=== PATIENT | female | born 2000 | race Caucasian/White ===

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

== ENCOUNTER 2019-03-27 15:30 | Outpatient (REF) | payer MEDICAID, SELFPAY ==
[2019-03-27 19:33] LABS: TSH (W/Ref FT4) 4.06 uIU/mL (0.52-4.13)
[2019-03-28 15:00] LABS: FREE T4 0.77 ng/dL (0.78-1.34)
== END 2019-03-27 15:50 ==
LOC: NCHCN 15:30
PROVIDERS: PCP Internal Medicine; Visit Provider Nurse Practitioner Family
DX: E03.9 Hypothyroidism, unspecified (principal)
CPT/HCPCS: 84439; 84443

== ENCOUNTER 2019-12-28 11:55 | Outpatient (REF) | payer MEDICARE, MEDICAID, SELFPAY ==
[2020-01-01 07:24] LABS: SARS-CoV-2 RNA Undetected (Undetected); SARS-CoV-2 Specimen Source Nasal
== END 2019-12-28 12:15 ==
LOC: NCHCN 11:55
PROVIDERS: PCP Internal Medicine; Visit Provider Nurse Practitioner Family
DX: Z20.828 Contact with and (suspected) exposure to other viral communicable diseases (principal)
CPT/HCPCS: U0003

== ENCOUNTER 2020-07-29 15:31 | Outpatient (REF) | payer MEDICARE, MEDICAID, SELFPAY ==
[2020-07-29 19:45] LABS: TSH (W/Ref FT4) 2.28 uIU/mL (0.36-3.74)
== END 2020-07-29 15:32 | disposition home or self-care (01) ==
LOC: NCHCN 15:31
PROVIDERS: PCP Internal Medicine; Visit Provider Nurse Practitioner Family
DX: E03.9 Hypothyroidism, unspecified (principal)
CPT/HCPCS: 84443

== ENCOUNTER 2020-10-01 18:09 | Outpatient (REF) | payer MEDICARE, MEDICAID, SELFPAY ==
--- NOTE | 2020-10-01 11:45 | PAPFT_PTH ---
PATIENT: Dolores Pineda LOC: [facility] U#:[id number] AGE/SX: 20/F ROOM: RE10/01/[address]: Yeni Szymanski : 2000 BED: DIS: 10/01/2020 SPEC #: [id number] RECD: 10/01/20 18:18 STATUS: MATTI REAriel #: [id number] SKYLAR: 10/01/20 11:[address] Cytology RECD BY: Raisa Hirsch ENTERED: 10/01/20 18:19 SP TYPE: PAPFT OTHR DR: Enrique Castano Tissues: 1 - CX/ENDOCX FOR PAP SMEARS Procedures: PAP THIN PREP/[facility] Screening Comments: [id number] (CHLAMYDIA/GC)
[2020-10-02 15:25] LABS: Chlamydia Result Negative (Negative); GC Result Negative (Negative)
== END 2020-10-01 18:10 | disposition home or self-care (01) ==
LOC: LBN 18:09
PROVIDERS: PCP Internal Medicine; Visit Provider Nurse Practitioner Family
DX: Z11.3 Encounter for screening for infections with a predominantly sexual mode of transmission (principal); Z12.4 Encounter for screening for malignant neoplasm of cervix; Z01.419 Encounter for gynecological examination (general) (routine) without abnormal findings
CPT/HCPCS: 87491; 87591; 88142

== ENCOUNTER 2020-11-26 16:09 | Outpatient (REF) | payer MEDICARE, MEDICAID, SELFPAY ==
[2020-11-26 20:07] LABS: Abs Immature Grans 0.05 10^3/uL (0.0-0.06); Absolute Basophil Count 0.05 10^3/uL (0.0-0.2); Absolute Eosinophil Count 0.48 10^3/uL (0.0-0.7); Absolute Lymphocyte Count 3.15 10^3/uL (1.2-3.4); Absolute Monocyte Count 0.74 10^3/uL (0.1-0.8); Absolute Neutrophil Count 4.19 10^3/uL (1.2-6.7); Basophils % 0.6; Eosinophils % 5.5; HCT 42.5 % (36.0-46.0); HGB 14.3 g/dL (11.2-15.7); Immature Grans % 0.6; Lymphocytes % 36.4; MCH 30.2 pg (27.0-33.0); MCHC 33.6 % (32.0-36.0); MCV 89.7 fL (80-95); MPV 11.7 fL (8.0-11.0); Monocytes % 8.5; Neutrophils % 48.4; Nucleated RBC 0 %; Platelet Count 296 10^3/uL (130-400); RBC 4.74 10^6/uL (3.93-5.22); RDW 12.9 % (11.7-14.6); RDW-SD 42.8 fL; WBC 8.66 10^3/uL (4.4-10.8)
== END 2020-11-26 16:10 | disposition home or self-care (01) ==
LOC: NCHCN 16:09
PROVIDERS: PCP Internal Medicine; Visit Provider Physician Assistant
DX: R19.5 Other fecal abnormalities (principal)
CPT/HCPCS: 85025

== ENCOUNTER 2020-11-27 20:26 | Outpatient (REF) | payer MEDICARE, MEDICAID, SELFPAY ==
[2020-11-27 22:12] LABS: C Diff PCR Positive (Negative)
[2020-11-29 11:33] LABS: Campylobacter PCR Negative (Negative); Salmonella PCR Negative (Negative); Shiga Toxin PCR Negative (Negative); Shigella/Enteroinvasive Ecoli Negative (Negative)
== END 2020-11-27 20:27 | disposition home or self-care (01) ==
LOC: NCHCN 20:26
PROVIDERS: PCP Internal Medicine; Visit Provider Physician Assistant
DX: R19.5 Other fecal abnormalities (principal)
CPT/HCPCS: 80053; 87493; 87505; 87177

== ENCOUNTER 2021-06-26 15:52 | Outpatient (REF) | payer MEDICARE, MEDICAID, SELFPAY ==
[2021-06-30 15:02] LABS: Chlamydia Result Negative (Negative); GC Result Negative (Negative)
== END 2021-06-26 15:53 | disposition home or self-care (01) ==
LOC: NCHCN 15:52
PROVIDERS: PCP Internal Medicine; Visit Provider Physician Assistant
DX: Z11.3 Encounter for screening for infections with a predominantly sexual mode of transmission (principal)
CPT/HCPCS: 87491; 87591

== ENCOUNTER 2021-12-23 15:39 | Outpatient (REF) | payer MEDICARE, MEDICAID, SELFPAY ==
[2021-12-23 19:59] LABS: C Diff PCR Negative (Negative)
== END 2021-12-23 15:40 | disposition home or self-care (01) ==
LOC: NCHCN 15:39
PROVIDERS: PCP Internal Medicine; Visit Provider Physician Assistant
DX: R19.7 Diarrhea, unspecified (principal)
CPT/HCPCS: 87493

== ENCOUNTER 2023-09-07 09:24 | Outpatient (REF) | payer MEDICARE, MEDICAID, SELFPAY ==
[2023-09-07 19:31] LABS: Abs Immature Grans 0.05 10^3/uL (0.0-0.06); Absolute Eosinophil Count 0.39 10^3/uL (0.0-0.7); Absolute Neutrophil Count 12.01 10^3/uL (1.2-6.7); Basophils % 0.4 %; Eosinophils % 2.3 %; HCT 43.1 % (36.0-46.0); HGB 14.8 g/dL (11.2-15.7); Immature Grans % 0.3 %; Lymphocytes % 21.4 %; MCH 30.8 pg (27.0-33.0); MCHC 34.3 % (32.0-36.0); MCV 90 fL (80-95); MPV 12.2 fL (8.0-11.0); Monocytes % 4.8 %; Neutrophils % 70.8 %; Platelet Count 302 10^3/uL (130-400); RBC 4.81 10^6/uL (3.93-5.22); RDW 13.3 % (11.7-14.6); RDW-SD 43.8 fL; WBC 16.97 10^3/uL (4.4-10.8)
[2023-09-07 19:49] LABS: Absolute Basophil Count 0.07 10^3/uL (0.0-0.2); Absolute Lymphocyte Count 3.63 10^3/uL (1.2-3.4); Absolute Monocyte Count 0.81 10^3/uL (0.1-0.8)
[2023-09-07 19:53] LABS: ALT 33 U/L (14-59); AST 26 U/L (15-37); Albumin 3.9 g/dL (3.4-5.0); Alkaline Phosphatase 75 U/L (46-116); Anion Gap 11.7 mmol/L (3-11); BUN 4 mg/dL (7-18); Bilirubin, Total 0.3 mg/dL (0.2-1.0); CO2 22.3 mmol/L (21.0-32.0); CREATININE 0.9 mg/dL (0.55-1.02); Calcium 8.9 mg/dL (8.5-10.1); Calculated LDL 89 mg/dL (<100); Chloride 106 mmol/L (98-107); Cholesterol 155 mg/dL (<200); Estimated GFR 91.55 (mL/min/1.73m2); Glucose 107 mg/dL (74-106); HDL Cholesterol 33 mg/dL (40-60); Sodium 140 mmol/L (136-145); TSH (W/Ref FT4) 1.71 uIU/mL (0.36-3.74); Total Protein 7.2 g/dL (6.4-8.2); Triglyceride 168 mg/dL (<150)
[2023-09-07 20:32] LABS: Hemoglobin A1C 5.3 % (<5.7)
== END 2023-09-07 09:25 | disposition home or self-care (01) ==
LOC: NCHCN 09:24
PROVIDERS: PCP Internal Medicine; Visit Provider Physician Assistant
DX: F60.3 Borderline personality disorder (principal); R79.89 Other specified abnormal findings of blood chemistry; Z79.899 Other long term (current) drug therapy
CPT/HCPCS: 80053; 80061; 83036; 84443; 85025

== ENCOUNTER 2023-09-27 12:59 | Outpatient (REF) | payer MEDICARE, MEDICAID, SELFPAY ==
[2023-09-27 20:05] LABS: HCT 41.8 % (36.0-46.0); HGB 14.1 g/dL (11.2-15.7); MCH 30.8 pg (27.0-33.0); MCHC 33.7 % (32.0-36.0); MCV 91 fL (80-95); MPV 11.9 fL (8.0-11.0); Platelet Count 286 10^3/uL (130-400); RBC 4.58 10^6/uL (3.93-5.22); RDW 13.2 % (11.7-14.6); RDW-SD 44.4 fL; WBC 16.91 10^3/uL (4.4-10.8)
== END 2023-09-27 13:00 | disposition home or self-care (01) ==
LOC: NCHCN 12:59
PROVIDERS: PCP Internal Medicine; Visit Provider Physician Assistant
DX: D72.829 Elevated white blood cell count, unspecified (principal)
CPT/HCPCS: 85027

== ENCOUNTER 2024-09-08 14:43 | Outpatient (REF) | payer MEDICARE, MEDICAID, SELFPAY ==
[2024-09-08 19:26] LABS: Abs Immature Grans 0.05 10^3/uL (0.0-0.06); Absolute Basophil Count 0.07 10^3/uL (0.0-0.2); Absolute Lymphocyte Count 3.69 10^3/uL (1.2-3.4); Basophils % 0.6 %; Eosinophils % 3.5 %; HGB 14.3 g/dL (11.2-15.7); Immature Grans % 0.4 %; Lymphocytes % 32.5 %; MCH 30.4 pg (27.0-33.0); MCHC 33.3 % (32.0-36.0); MCV 91 fL (80-95); MPV 10.7 fL (8.0-11.0); Monocytes % 6.2 %; Neutrophils % 56.8 %; Platelet Count 292 10^3/uL (130-400); RBC 4.71 10^6/uL (3.93-5.22); RDW 13.4 % (11.7-14.6); RDW-SD 45.9 fL; WBC 11.34 10^3/uL (4.4-10.8)
[2024-09-08 19:27] LABS: Absolute Neutrophil Count 6.44 10^3/uL (1.2-6.7)
[2024-09-08 19:42] LABS: ALT 45 U/L (14-59); AST 28 U/L (15-37); Albumin 3.7 g/dL (3.4-5.0); Alkaline Phosphatase 91 U/L (46-116); Anion Gap 6.5 mmol/L (3-11); BUN 6 mg/dL (7-18); Bilirubin, Total 0.3 mg/dL (0.2-1.0); CO2 29.5 mmol/L (21.0-32.0); CREATININE 1.1 mg/dL (0.55-1.02); Calcium 8.4 mg/dL (8.5-10.1); Calculated LDL 87 mg/dL (<100); Chloride 106 mmol/L (98-107); Cholesterol 150 mg/dL (<200); Estimated GFR 71.51 (mL/min/1.73m2); Glucose 90 mg/dL (74-106); HDL Cholesterol 41 mg/dL (>or=50); Potassium 4.3 mmol/L (3.5-5.1); Sodium 142 mmol/L (136-145); TSH (W/Ref FT4) 1.93 uIU/mL (0.36-3.74); Triglyceride 112 mg/dL (<150)
[2024-09-08 20:00] LABS: Hemoglobin A1C 5.3 % (<5.7)
== END 2024-09-08 14:44 | disposition home or self-care (01) ==
LOC: NCHCN 14:43
PROVIDERS: PCP Internal Medicine; Visit Provider Physician Assistant
DX: F33.3 Major depressive disorder, recurrent, severe with psychotic symptoms (principal)
CPT/HCPCS: 80053; 80061; 83036; 84443; 85025